=== PATIENT | female | born 1995 | race Caucasian/White ===

== ENCOUNTER 2022-02-19 10:38 | Day surgery (SDC) | payer MEDICAID, SELFPAY ==
[2022-02-19] VITALS (8 sets, daily range): BP systolic 124–148; BP diastolic 80–101; PULSE 84–107; RESP 15–18; TEMP 36.7–37.4; O2SAT 97–100; BMI 25.8
[2022-02-19] MEDS: Lactated Ringers 1,000 ML 15 ML IV (10:55)
[2022-02-19] MEDS: Cefazolin 2 GM in 0.9% Normal Saline 100 ML IV (11:42)
--- NOTE | 2022-02-19 11:55 | RAD_ITS ---
STUDY: X-RAY - LEFT ANKLE REASON FOR EXAM: Female, 26 years old. Intraoperative digital documentation views. TECHNIQUE: 3 intraoperative digital documentation view(s) of the ankle. COMPARISON: No comparison images provided. FINDINGS: 3 intraoperative digital documentation views show anterior malleable plate and screw fixation of the distal tibia. Anatomic alignment on the last image. No complications identified. RAD/Ankle 2 Views IMPRESSION: Intraoperative digital documentation images as described. Electronically Signed: Mychal Méndez, at 13:45 EDT ,
[2022-02-19] MEDS: Bupivacaine 0.25% 30 ML Vial (12:45)
[2022-02-19] MEDS: oxyCODONE 5 MG Tablet 10 MG PO (14:51)
--- NOTE | 2022-02-19 15:35 | DCINST_ITS ---
Discharge Instructions Follow Up Care Test Results: Test results from this visit will be discussed in further detail at your follow- up appointment, if applicable. Discharge Plan Admission Primary Reason for Your Visit: Left ankle surgery Attending Provider: Wilber Mallory Primary Care Provider: Bay Quinones Instructions Additional Instructions / Restrictions: Follow preprinted instructions from your surgeons office Discharge Orders/Prescriptions Prescriptions: No Action NK Referrals / Follow Up: Bay Quinones DO [Primary Care Provider] - Wilber Mallory DO [Med Staff - Active Staff] - Within 2 Weeks Disposition Disposition (needs filled in before D/C Order can be placed): Home, Self Care
--- NOTE | 2022-02-19 15:35 | PCM.OPRPT ---
Report of Operation Date of Procedure: 02/19/22 Description of Surgical Findings:: Preoperative diagnosis: Comminuted left distal tibia intra-articular pilon fracture Postoperative diagnosis: Comminuted left distal tibia intra-articular pilon fracture Procedure: Open reduction internal fixation left distal tibia pilon Surgeon: Wilber Mallory DO [employer]: Yamileth Griffith PA-C Anesthesia: General endotracheal Anesthesiologist: Dr. Guzmán Complications: None apparent Drains: None Estimated blood loss: 25 cc Urinary output: None recorded IV fluids: 1200 cc crystalloid Specimens: None Surgical implants: Sproutkin 3.5 mm 4-hole anterior tibia delta plate Surgical indications: This is a 26-year-old female who sustained a fall from height 02/08/2022 when she fell from the [employer] [place] in a barn onto her left foot and ankle. She noted immediate pain with weightbearing. She was seen by a chiropractor where x-rays confirmed the fracture. She subsequently followed up in our office 02/11/2022. She was placed in a posterior splint. I saw the patient in the office 02/16/2022 and recommended surgical intervention after review of a CT scan showing significant depression of the articular surface and displacement of the anterior lip of the tibial plafond. We discussed the risks, benefits, alternatives to the procedure. The risks include but are not limited to bleeding, infection, loss of life or limb, risk of anesthesia, risk of nerve block, persistent pain, nonunion, malunion, posttraumatic arthritis, instability, need for additional surgery, failure of orthopedic hardware, persistent limp or need for assistive device. Patient expressed understanding of these risks and wished to proceed. Description of procedure: Patient was seen in preoperative holding area. They were identified by name, medical record number, date of . The operative extremity was marked with a surgical marker. We confirmed informed consent with the patient and all questions were answered to her satisfaction. At time of the procedure, patient was brought to the operative suite and positioned supine on a standard operating table. All bony prominences were well-padded. General anesthesia was administered. After adequate anesthesia, a well-padded pneumatic tourniquet was applied to the left upper thigh. A large bump was placed in the patient's left hip. The left lower extremity was elevated on bath blankets for fluoroscopic imaging and access to the limb during surgery. We secured this with tape as well as the nonoperative extremity. We then performed a timeout with all parties in attendance and agree with the side, site, operation to be performed. No concerns were voiced and elected to proceed. 2 g Ancef Ancef was administered prior to incision by the anesthesia staff. We then prepped and draped the operative extremity using a ChloraPrep. While stabilizing the ankle, the operative extremity was exsanguinated with an Esmarch bandage. Tourniquet was inflated to 250 mmHg where remained up for approximately 1 hour. Esmarch was removed. I planned a standard anterolateral approach to the distal tibia along the anterior lateral ankle in line with the fourth ray approximately 10 cm in length. Skin was sharply incised with a 15 blade scalpel. Proximally, the superficial peroneal nerve was identified protected throughout the case. I mobilized the nerve and retracted it medially as well as I tagged it with a vessel loop. The anterior compartment fascia was then encountered. I sharply incised the anterior compartment fascia in line with the incision. I elevated the tendons and neurovascular bundle bluntly from the underlying capsule. An [facility] retractor held the tendons and neurovascular bundle. I then made a small capsulotomy to visualize the joint surface. Fracture was encountered and periosteum at the fracture edges was elevated approximately 3 mm for visualization of reduction. I was able to open book the fracture site and identified comminution at the joint level. Cartilage fracture was also noted. I used a freer elevator to rotate and impacted fragment to near anatomic reduction. I held this as well as the large anterior lip fragment reduced with a K wire. Fluoroscopic images showed acceptable reduction. I then selected a delta plate from [employer] to act as a buttress plate. I held this in place with K wires. Plate placement was confirmed to be appropriate on orthogonal fluoroscopy. I then drilled a bicortical cortex screw at the apex of the fracture which significantly compressed the fracture in standard buttress fashion. I placed an additional cortical screw proximal to the apex. I placed a locking screw in the subchondral bone of the anterior fragment to act as a rafting screw as well as a locking screw traversing the fracture fragment. Final fluoroscopic images were obtained. Acceptable reduction was confirmed. Joint and incision were thoroughly irrigated normal saline solution. Tourniquet was deflated hemostasis was excellent. I closed the capsulotomy in watertight fashion with 2-0 Vicryl suture. I performed a field block with 30 cc 0.25% plain bupivacaine. I loosely reapproximated the anterior compartment fascia with 2-0 Vicryl suture in interrupted [id number] fashion. Dermis was reapproximated with buried 2-0 Vicryl suture. Skin was finally closed with interrupted simple 3-0 nylon suture. Sterile compression dressing was applied as well as a 3 sided AO type fiberglass short leg splint. Need for skilled advertising assistant manager: Yamileth Griffith PA-C was critical to the outcome of the case. During the course of the procedure the physician advertising assistant manager played a vital role. Her intimate knowledge of my steps in the procedure aided in safe and expedient completion of the procedure. The PA played a vital role in positioning particularly in obtaining the appropriate positioning. The PA was also vital in the retraction of soft tissues during the exposure and protecting vital structures. The PA was also vital and obtaining fracture reduction and assisting with hardware placement. She also played a vital role in closure and splint application with my direct supervision. Post Operative Plan: Weightbearing: Nonweightbearing operative extremity Antibiotics: 2 g Ancef x 1 dose preoperatively DVT Prophylaxis: Aspirin 81 mg twice daily starting tomorrow Dressing: Maintain splint, keep it clean dry and intact until follow-up X-Rays: 2 weeks postop in the office Pain Medication: Oxycodone Rx provided at preoperative visit Follow-up: 2 weeks post-operatively with me in the office
== END 2022-02-19 15:27 | disposition home or self-care (01) ==
LOC: SDC 10:47 → AC 10:48
PROVIDERS: PCP Family Medicine; Referring Provider Student in an Organized Health Care Education/Training Program; Visit Provider Student in an Organized Health Care Education/Training Program
PROC: (CPT 27827; principal; 2022-02-19 11:40)
DX: S82.872A Displaced pilon fracture of left tibia, initial encounter for closed fracture (principal); S92.155A Nondisplaced avulsion fracture (chip fracture) of left talus, initial encounter for closed fracture; W17.89XA Other fall from one level to another, initial encounter; E66.3 Overweight; Z68.27 Body mass index [BMI] 27.0-27.9, adult; Z71.3 Dietary counseling and surveillance
CPT/HCPCS: 27827; 01480; 73600; 76000; C1776; J7120; J2405

== ENCOUNTER 2023-03-25 07:17 | Day surgery (SDC) | payer MEDICAID, SELFPAY ==
[2023-03-25] VITALS (8 sets, daily range): BP systolic 115–140; BP diastolic 68–94; PULSE 82–102; RESP 14–17; TEMP 36.3–37.3; O2SAT 93–100; BMI 28.4
[2023-03-25] MEDS: Lactated Ringers 1,000 ML 15 ML IV (07:47)
[2023-03-25] MEDS: Cefazolin 2 GM in 0.9% Normal Saline (100mL Bag) 100 ML IV (08:42)
--- NOTE | 2023-03-25 09:30 | RAD_ITS ---
STUDY: X-RAY - LEFT ANKLE REASON FOR EXAM: Female, 27 years old. LEFT ANKLE HARDWARE REMOVAL AND ARTHROSCOPY TECHNIQUE: 2 view(s) of the ankle. COMPARISON: Comparison is made with prior study February 19, 2022. FINDINGS: Intraoperative imaging provided for hardware removal. RAD/Ankle 2 Views IMPRESSION: Intraoperative imaging provided for hardware removal. Electronically Signed: Axel Diggs MD at 14:03 EST ,
[2023-03-25] MEDS: Bupivacaine Mpf 0.5% 30 ML VIAL (09:58)
[2023-03-25] MEDS: Ketorolac 30 MG/ML Syringe IV (11:44)
--- NOTE | 2023-03-25 12:20 | OP.PCM_ITS ---
Report of Operation Date of Procedure: 03/25/23 Description of Surgical Findings:: Preoperative diagnosis: 1. Symptomatic left tibia hardware 2. Anterior ankle impingement left Postoperative diagnosis: 1. Symptomatic left tibial hardware 2. Chondromalacia tibial plafond left 3. Anterior ankle impingement/synovitis Procedure: 1. Diagnostic and operative left ankle arthroscopy with synovectomy, chondroplasty 2. Left distal tibia removal of hardware Surgeon: Wilber Mallory DO [employer]: Yamileth Griffith PA-C Estimated blood loss: 25 cc Urine output: None recorded IV fluids: Per anesthesia record Specimen: None Complications: None apparent Packing/drains: None Findings: Well-healed fracture. Grade III chondromalacia focally at the level of the fracture union distal tibia, anterior synovitis/impingement tissue, hypertrophic Monroe's ligament. Preoperative indications: This is an otherwise healthy 27-year-old female who sustained an injury to her left ankle last year. She underwent uncomplicated left distal tibia open reduction internal fixation with myself on 02/19/2022. She recovered well. She returned to the office approximately 6 months postoperatively with anterior ankle pain. We attempted a corticosteroid injection to her ankle due to suspected anterior impingement. She did receive relief with the injection however the pain returned. She also had findings concerning for symptomatic hardware. Fracture was well-healed. I recommended surgical intervention in the form of removal of hardware left ankle, diagnostic and operative arthroscopy with possible synovectomy and chondroplasty. The risks, benefits, terms the procedure reviewed with the patient at length and she agreed to proceed. Risk included but were not limited to bleeding, flexion, loss of life or limb, need for additional surgery, persistent pain, nonhealing wounds, neurovascular injury, stiffness. Patient expressed understanding of these risks and wished proceed with surgery. Description of procedure: Patient identified in the preoperative holding her by name, medical record number, date of . The operative extremities marked. All questions were patient satisfaction. At time of procedure, patient brought the operative suite positioned supine a sterile operating table. General anesthesia was induced and LMA was placed. All bony prominences were well-padded. A well-padded pneumatic tourniquet was applied to left upper thigh. We prepped and draped the left lower extremity in normal, sterile orthopedic fashion. We performed timeout with all parties in attendance in agreement the side, site, operation be performed. No concerns were voiced and we elected proceed with surgery. 2 g Ancef was administered IV prior to incision by anesthesia staff. After staying the left lower extremity with a Esmarch bandage. Tourniquet was inflated to 250 mmHg which remained up for approximately 30 minutes. Esmarch was removed. I placed the left lower extremity in an ankle distractor. I then established a standard anterior medial portal with a stab incision, hemostat and Joana scope trocar. The Joana scope was then introduced. The joint was insufflated with normal saline solution. I then turned my attention laterally. An anterior lateral portal was established under direct visualization with a spinal needle and subsequently a 15 blade scalpel bluntly entering the joint with a hemostat. Shaver was then introduced. Anterior synovitis and impingement tissue consistent with a hypertrophic Monroe's ligament was noted. This was debrided with the radial resector. Chondral surfaces were identified. Healed cartilage was noted at the level of the fracture with slight on leveling and grade III chondromalacia which was debrided with abrasion chondroplasty to a smooth surface. Medial lateral gutters were unremarkable. Talus cartilage was pristine. The ankle was thoroughly lavaged. Arthroscopic instruments were removed. I then turned my attention to the anterior lateral incision. Scar was excised. I then opened the fascia in line with the previous surgical dissection. Anterior compartment musculature was lifted off the plate and the plate was identified. Screws were removed. I elevated the plate with a osteotome and the hardware was removed in its entirety. Orthogonal fluoroscopy confirmed well-healed fracture and complete removal of hardware. Wound was copiously irrigated with normal saline solution. Tourniquet was deflated and hemostasis was achieved with Bovie cautery. I closed the fascia with interrupted [id number] 2-0 Vicryl suture. Dermis was reapproximated buried 2-0 Vicryl suture. An ankle block was administered with 30 cc total 0.5% plain bupivacaine. Skin and portal sites were closed in interrupted simple fashion with a 3-0 nylon suture. Bulky sterile compression dressing was applied. Patient was placed in her cam walking boot. She was safely awoken the operative suite and transferred to PACU in stable condition. Need for skilled ophthalmology assistant: Yamileth Griffith PA-C was critical to the outcome of the case. During the course of the procedure the physician ophthalmology assistant played a vital role. Her intimate knowledge of my steps in the procedure aided in safe and expedient completion of the procedure. The PA played a vital role in positioning particularly in obtaining the appropriate positioning. The PA was also vital in the retraction of soft tissues during the exposure and protecting vital structures. The PA was also vital with hardware removal. She also played a vital role in closure and dressing application with my direct supervision. Postoperative plan: 25% weightbearing left lower extremity. Ice and elevation encouraged. Follow-up in 2 weeks for suture removal. No x-rays needed. Prescription for oxycodone provided. Tylenol ibuprofen encouraged. Plan to likely initiate physical therapy 2 weeks postoperatively.
== END 2023-03-25 12:45 | disposition home or self-care (01) ==
LOC: SDC 07:20 → AC 07:21
PROVIDERS: PCP Family Medicine; Referring Provider Student in an Organized Health Care Education/Training Program; Visit Provider Student in an Organized Health Care Education/Training Program
PROC: (CPT 29897; principal; 2023-03-25 08:20)
DX: M94.262 Chondromalacia, left knee (principal); T84.84XA Pain due to internal orthopedic prosthetic devices, implants and grafts, initial encounter; S82.872A Displaced pilon fracture of left tibia, initial encounter for closed fracture; M65.872 Other synovitis and tenosynovitis, left ankle and foot; M19.172 Post-traumatic osteoarthritis, left ankle and foot; S92.155A Nondisplaced avulsion fracture (chip fracture) of left talus, initial encounter for closed fracture; E66.3 Overweight; Z68.27 Body mass index [BMI] 27.0-27.9, adult; X58.XXXA Exposure to other specified factors, initial encounter
CPT/HCPCS: 29897; 20680; 01464; 73600; 76000; J7120; J2405

== ENCOUNTER 2023-08-12 12:11 | Day surgery (SDC) | payer MEDICAID, SELFPAY ==
[2023-08-12] VITALS (12 sets, daily range): BP systolic 126–140; BP diastolic 72–102; PULSE 84–112; RESP 16–18; TEMP 36.6–38.3; O2SAT 98–100; BMI 29.0
[2023-08-12 13:14] LABS: Hematocrit 48.2 % (37-47); Hemoglobin 16.1 g/dL (12.0-15.0); Mean Corp Hgb Conc 33.4 g/dL (32-36); Mean Corpuscular Hgb 29.1 pg (27.0-32.0); Mean Corpuscular Volume 87.2 fL (81-99); Mean Platelet Vol. 8.7 fl (6.2-12.0); Platelet Count 364 K/mm3 (150-450); RBC Distribution Width CV 11.8 % (11.6-14.6); RBC Distribution Width SD 37.6 fl (35.1-43.9); Red Blood Count 5.53 M/mm3 (4.2-5.4)
[2023-08-12] MEDS: Lactated Ringers 1,000 ML 15 ML IV (13:16)
[2023-08-12 13:30] LABS: AST(SGOT) 16 U/L (15-37); Alanine Aminotransfer ALT/SGPT 18 U/L (13-56); Albumin, Serum 4.3 g/dL (3.2-5.0); Alkaline Phosphatase 70 U/L (45-117); Bilirubin, Direct 0.16 mg/dL (0.00-0.30); Globulin 5.8 g/dL (2.2-4.2); Protein, Total 10.1 g/dL (6.4-8.2)
[2023-08-12 13:32] LABS: International Normalized Ratio 1.1; Prothrombin Time (Protime)PT. 13.7 SECONDS (11.7-14.9)
[2023-08-12 13:33] LABS: Partial Thromboplast Time 29.8 Seconds (24.1-36.2)
[2023-08-12] MEDS: Cefazolin 1 GM/50 ML BAG IV (14:06)
--- NOTE | 2023-08-12 14:20 | RAD_ITS ---
STUDY: X-RAY - RIGHT ANKLE REASON FOR EXAM: Female, 28 years old. Intraoperative digital documentation views. TECHNIQUE: 4 intraoperative digital documentation view(s) of the ankle. COMPARISON: 02/19/2022 FINDINGS: 4 intraoperative digital documentation views show 2 cancellus screws within the medial malleolus without complication. RAD/Ankle 2 Views IMPRESSION: Intraoperative digital documentation views as described. Electronically Signed: Mychal Méndez MD at 15:40 EDT ,
[2023-08-12] MEDS: Bupivacaine Mpf 0.5% 30 ML VIAL (14:50)
--- NOTE | 2023-08-12 14:58 | OP.PCM_ITS ---
Report of Operation Date of Procedure: 08/12/23 Description of Surgical Findings:: Preoperative diagnosis: Right ankle medial malleolus fracture Postoperative diagnosis: Right ankle medial malleolus fracture Procedure: Open reduction internal fixation right ankle medial malleolus Surgeon: Wilber Mallory DO assistant secretary: Yamileth Griffith PA-C Anesthesia: General endotracheal Anesthesiologist: Dr. Guzmán Complications: None Drains: None Estimated blood loss: 10 cc Urinary output: None recorded IV fluids: Per anesthesia record Specimens: None Surgical implants: Arthrex titanium 4.0 mm partially-threaded cannulated cancellous screws x 2 Surgical indications: This is a 28-year-old female who sustained a a right ankle injury while riding a horse approximately 1 week ago. X-rays at outside emergency room revealed a displaced medial malleolus fracture in isolation. Due to the fracture involving the shoulder of the medial malleolus, I recommended surgical intervention in the form of right ankle medial malleolus open reduction internal fixation. I reviewed the risks, benefits, terms the procedure with the patient at length. The risks include but are not limited to bleeding, infection, loss of life or limb, risk of anesthesia, risk of nerve block, persistent pain, nonunion, malun ion, posttraumatic arthritis, instability, need for additional surgery, failure of orthopedic hardware, persistent limp or need for assistive device. Patient expressed understanding of these risks and wished to proceed. Description of procedure: Patient was seen in preoperative holding area. They were identified by name, medical record number, date of . The operative extremity was marked with a surgical marker. We confirmed informed consent with the patient and all questions were answered to her satisfaction. At time of the procedure, patient was brought to the operative suite and positioned supine on a standard operating table. All bony prominences were well-padded. General anesthesia was administered. After adequate anesthesia, a well-padded pneumatic tourniquet was applied to the right upper thigh. A large bump was placed in the patient's right hip. The right lower extremity was elevated on bath blankets for fluoroscopic imaging and access to the limb during surgery. We secured this with tape as well as the nonoperative extremity. We then performed a timeout with all parties in attendance and agree with the side, site, operation to be performed. No concerns were voiced and elected to proceed. 1 g Ancef was administered prior to incision by the anesthesia staff. We then prepped and draped the operative extremity using a ChloraPrep. While stabilizing the ankle, the operative extremity was exsanguinated with an Esmarch bandage. Tourniquet was inflated to 250 mmHg which remained up for approximate 25 minutes. Esmarch was removed. Longitudinal incision was made sharply through skin subcutaneous tissue overlying the medial malleolus. Crossing vessels were cauterized. Periosteum was noted to be torn at the level of fracture. I debrided interposed periosteum and fracture hematoma with a 15 blade scalpel. The fracture was irrigated. Posterior tibialis tendon was examined and appeared pristine. Articular cartilage appeared pristine. I then utilized a pointed reduction clamp to achieve anatomic reduction of the medial malleolus. 2 parallel K wires were placed through the tip of the medial malleolus. Appropriate position was confirmed on orthogonal fluoroscopy. I then drilled the near cortex for a partially-threaded cannulated screws which I measured to be 50 mm with excellent compression across the fracture site. Clamp was remov ed. Fracture was stable. Wires were then removed. Orthogonal fluoroscopy confirmed anatomic reduction. External rotation stress test was then performed and the syndesmosis appeared stable. Wound was carlin irrigated normal saline solution. Tourniquet deflated. Hemostasis was achieved with unipolar cautery. Field block was administered 20 cc total 0.5% bupivacaine plain. Dermis was reapproximated buried 3-0 Vicryl suture. Skin was finally reapproximated with simple 4-0 nylon suture. Bulky sterile compression dressing was applied as well as a well-padded 3 sided AO type short leg fiberglass splint in maximal dorsiflexion. Patient tolerated the procedure well without complication. She was to safely awoken the operative suite and transferred to her gurney and subsequent PACU in stable condition. Need for skilled business office assistant: Yamileth Griffith PA-C was critical to the outcome of the case. During the course of the procedure the physician business office assistant played a vital role. Her intimate knowledge of my steps in the procedure aided in safe and expedient completion of the procedure. The PA played a vital role in positioning particularly in obtaining the appropriate positioning. The PA was also vital in the retraction of soft tissues during the exposure and protecting vital structures. The PA was also vital and obtaining fracture reduction and assisting with hardware placement. She also played a vital role in closure and splint application with my direct supervision. Post Operative Plan: Weightbearing: Nonweightbearing operative extremity Antibiotics: 1 g Ancef x 1 dose preoperatively DVT Prophylaxis: aspirin 81 mg twice daily for DVT prophylaxis x 6 weeks Parry: None Dressing: Maintain splint, keep it clean dry and intact until follow-up. Plan to transition to fracture boot in the office in 2 weeks. We will likely progress to weightbearing as tolerated in 2 weeks. X-Rays: 2 weeks postop in the office Pain Medication: Percocet Rx upon discharge Follow-up: 2 weeks post-operatively in the office
[2023-08-12] MEDS: Ketorolac 30 MG/ML Syringe IV (15:35)
== END 2023-08-12 17:07 | disposition home or self-care (01) ==
LOC: SDC 12:12 → AC 12:14
PROVIDERS: Anesthesiology; PCP Family Medicine; Referring Provider Student in an Organized Health Care Education/Training Program; Visit Provider Student in an Organized Health Care Education/Training Program
PROC: (CPT 27766; principal; 2023-08-12 14:30)
DX: S82.51XA Displaced fracture of medial malleolus of right tibia, initial encounter for closed fracture (principal); M25.471 Effusion, right ankle; E66.3 Overweight; Z79.82 Long term (current) use of aspirin; V80.010A Animal-rider injured by fall from or being thrown from horse in noncollision accident, initial encounter; Z68.28 Body mass index [BMI] 28.0-28.9, adult
CPT/HCPCS: 27766; 01480; 73600; 76000; 80076; 85027; 85610; 85730; C1713; J7120; J2405